=== PATIENT | male | born 1970 | race African-American/Black ===

== ENCOUNTER 2021-11-14 06:17 | Day surgery (SDC) | payer MEDICAID ==
[~2021-11-14] VITALS: Ht 177.8 cm; Wt 90.7 kg
[2021-11-14] MEDS ORDERED: fentaNYL CITRATE/PF 100 MCG/2 ML AMP ONE (06:21)
[2021-11-14] MEDS ORDERED: MIDAZOLAM HCL 5 MG/5 ML VIAL ONE (06:21)
[2021-11-14] MEDS ORDERED: BENZOCAINE 20% 0.5mL UD SPRAY MM ONE (08:16)
[2021-11-14] MEDS ORDERED: MEPERIDINE 100 MG INJ. 100 MG/ML VIAL ONE (08:28)
[2021-11-14 09:15] VITALS: BP_SYST 137
== END 2021-11-14 10:15 | disposition home or self-care (01) ==
LOC: SDS 06:17 → SMU 06:18 → SDS 10:15
PROVIDERS: ATTEND Internal Medicine
DX: Z12.11 Encounter for screening for malignant neoplasm of colon (principal); D12.0 Benign neoplasm of cecum; D12.3 Benign neoplasm of transverse colon; K29.50 Unspecified chronic gastritis without bleeding; I10 Essential (primary) hypertension; Z79.899 Other long term (current) drug therapy; Z20.822 Contact with and (suspected) exposure to COVID-19
CPT/HCPCS: 36415 ×2; 43239; 45380; 45385; 87426; 87635; 88305; 88312; 88313; 99152; 99153; G0378; J2175; J2250; U0003; J3010